=== PATIENT | male | born 1985 | race Caucasian/White ===

== ENCOUNTER 2018-05-06 06:05 | Day surgery (SDC) | payer OTHER ==
[2018-05-06] MEDS ORDERED: MIRALAX17 GM PO (09:02)
[2018-05-06] MEDS ORDERED: ZOFRAN ODT4 MG PO (09:02)
[2018-05-06] MEDS ORDERED: ULTRACET PO (09:02)
== END 2018-05-06 10:10 | disposition home or self-care (01) ==
LOC: CIR.AMB 06:05
DX: K42.0 Umbilical hernia with obstruction, without gangrene (principal)

== ENCOUNTER 2025-05-20 10:04 | Emergency (ER) | payer OTHER ==
[~2025-05-20] VITALS: Ht 175.3 cm; Wt 83.9 kg
[~2025-05-20 10:04] MED LIST: MIRALAX17 GM PO; ULTRACET PO; ZOFRAN ODT4 MG PO
[2025-05-20] MEDS ORDERED: KETOROLAC TROMETHAMINE 30 MG VIAL ONE (10:38)
[2025-05-20] MEDS ORDERED: FAMOTIDINE/PF 20 MG/2 ML VIAL ONE (10:38)
[2025-05-20] MEDS ORDERED: FAMOtidine 10 MG/ML (4ML VIAL) IV ONE (10:45)
[2025-05-20] MEDS ORDERED: KETOROLAC TROMETHAMINE 30 MG VIAL IV ONE (10:45)
[2025-05-20] MEDS ORDERED: 0.9 % SODIUM CHLORIDE 1,000 ML IV ONE (10:45)
[2025-05-20 11:02] LABS: BASO % 0.7 % (0.1-1.2); EOS # 0.15 (0.04-0.54); EOS % 1.5 % (0.7-7.0); HEMATOCRIT 40.5 % (40.1-51.0); HEMOGLOBIN 13.9 g/dL (13.7-17.5); LYMPH % 29.8 % (19.3-53.1); MEAN CORPUSCULAR HEMOGLOBIN 29.6 pg (25.6-32.2); MONO # 0.67 (0.24-0.82); MONO % 6.9 % (4.7-12.5); NEUT # 5.89 (1.56-6.13); NEUT % 60.7 % (34.0-71.1); PLATELET COUNT 313 K/uL (163-369); RED BLOOD COUNT 4.69 M/uL (4.63-6.08); RED CELL DISTRIBUTION WIDTH 11.9 % (11.6-14.4)
[2025-05-20 11:31] LABS: ALBUMIN 3.9 gm/dL (3.4-5.0); BILIRUBIN TOTAL 1.02 mg/dL (0.3-1.2); CALCIUM 9.8 mg/dL (8.5-10.1); CREATININE SERUM 1.05 mg/dL (0.70-1.30); GFR 77.84; GLOBULINA 4.6 G/DL (2.4-3.5); TOTAL PROTEIN 8.5 gm/dL (6.4-8.2)
[2025-05-20 11:37] LABS: INR 1.05; PARTIAL THROMBOPLASTIN TIME 25.6 SECONDS (22.0-34.0); PROTHROMBIN TIME 11.4 SECONDS (9.0-11.5)
[2025-05-20 13:34] LABS: URINE APPEARANCE Clear; URINE BILIRRUBIN Negative (NEGATIVE); URINE BLOOD Negative; URINE COLOR Yellow; URINE GLUCOSE Negative (NEGATIVE); URINE KETONE Negative (NEGATIVE); URINE LEUKOCYTE Negative; URINE NITRATE Negative; URINE PROTEIN Negative (NEGATIVE)
[2025-05-20 13:38] LABS: URINE BACTERIA 8.5 uL (0.0-1933); URINE EPITHELIAL CELLS 1.8 uL (0.0-38.8); URINE RBC 3.6 uL (0.0-20.8)
[2025-05-20 13:48] LABS: URINE CAST 0.29 uL (0.0-1.40); URINE WBC 1.2 uL (0.0-23.2)
[2025-05-20] MEDS ORDERED: METRONIDAZOLE500 MG PO (14:20)
[2025-05-20] MEDS ORDERED: PEPCID AC20 MG PO (14:20)
[2025-05-20] MEDS ORDERED: CIPRO500 MG PO (14:20)
[2025-05-20] MEDS ORDERED: PROBIOTIC1 EAC2 PO (14:20)
== END 2025-05-20 14:47 | disposition home or self-care (01) ==
LOC: ER 10:12
PROVIDERS: General Practice
DX: R10.9 Unspecified abdominal pain (principal)
CPT/HCPCS: 36415; 74177; Q9965